=== PATIENT | male | born 1980 | race Caucasian/White ===

== ENCOUNTER 2018-06-11 13:56 | Emergency (ER) | payer MEDICAID ==
[~2018-06-11] VITALS: Ht 188 cm; Wt 100.7 kg
[2018-06-11 14:06] VITALS: BP 138/111; Ht 188 cm; Wt 100.7 kg
== END 2018-06-11 15:31 | disposition home or self-care (01) ==
LOC: ED 13:56
DX: M54.5 Low back pain (principal); E11.9 Type 2 diabetes mellitus without complications; I10 Essential (primary) hypertension; E78.00 Pure hypercholesterolemia, unspecified

== ENCOUNTER 2019-02-28 09:44 | Emergency (ER) | payer MEDICAID ==
[~2019-02-28] VITALS: Ht 185.4 cm; Wt 99.8 kg
[2019-02-28 09:49] VITALS: Ht 185.4 cm; Wt 99.8 kg
[2019-02-28 12:16] VITALS: BP 138/90
== END 2019-02-28 12:20 | disposition home or self-care (01) ==
LOC: ED 09:44
DX: S40.012A Contusion of left shoulder, initial encounter (principal); S70.02XA Contusion of left hip, initial encounter; S80.12XA Contusion of left lower leg, initial encounter; S90.02XA Contusion of left ankle, initial encounter; S50.312A Abrasion of left elbow, initial encounter; I10 Essential (primary) hypertension; E11.9 Type 2 diabetes mellitus without complications; Z76.0 Encounter for issue of repeat prescription; Y08.09XA Assault by strike by other specified type of sport equipment, initial encounter; Y93.89 Activity, other specified; Y92.89 Other specified places as the place of occurrence of the external cause; Y99.8 Other external cause status

== ENCOUNTER 2019-03-06 14:37 | Emergency (ER) | payer MEDICAID ==
[~2019-03-06] VITALS: Ht 185.4 cm; Wt 99.8 kg
[2019-03-06 14:47] VITALS: Ht 185.4 cm; Wt 99.8 kg
[2019-03-06 15:28] LABS: BASOPHIL % 0.3 % (0-2); PLATELET COUNT 365 x10^3mcL (130-400); RED CELL DISTRIBUTION WIDTH 12.8 % (11.5-14.5)
[2019-03-06 15:36] LABS: ALBUMIN 3.7 g/dL (3.4-5.0); ALKALINE PHOSPHATASE 101 U/L (46-116); ALT/SGPT 36 U/L (16-63); AST/SGOT 12 U/L (15-37); BILIRUBIN TOTAL 0.6 mg/dL (0.20-1.00); CALCIUM 10.5 mg/dL (8.5-10.1); CHLORIDE SERUM 97 mmol/L (98-107); CREATININE SERUM 0.9 mg/dL (0.7-1.3); GFR1 > 60 mL/min; POTASSIUM SERUM 4.4 mmol/L (3.5-5.1); SODIUM SERUM 135 mmol/L (136-145)
[2019-03-06 15:52] LABS: GLUCOSE SERUM 487 mg/dL (74-106)
[2019-03-06 18:18] VITALS: BP 104/91
== END 2019-03-06 18:18 | disposition other institution (70) ==
LOC: ED 14:37
PROVIDERS: Specialist
DX: E11.65 Type 2 diabetes mellitus with hyperglycemia (principal); F17.200 Nicotine dependence, unspecified, uncomplicated; I10 Essential (primary) hypertension; F19.10 Other psychoactive substance abuse, uncomplicated; Z98.890 Other specified postprocedural states
CPT/HCPCS: 82962; 99406; J1815; J7030; Q0092

== ENCOUNTER 2019-03-06 14:37 | Emergency (ER) | payer OTHER | END 2019-03-06 18:18 | disposition other institution (70) | LOC: ED 14:37 | DX: Z02.89 Encounter for other administrative examinations (principal) | CPT/HCPCS: 36600 ==

== ENCOUNTER 2019-03-21 09:34 | Emergency (ER) | payer MEDICAID ==
[~2019-03-21] VITALS: Ht 185.4 cm; Wt 99.8 kg
[2019-03-21 09:37] VITALS: Ht 185.4 cm; Wt 99.8 kg
[2019-03-21 11:34] VITALS: BP 140/93
== END 2019-03-21 11:42 | disposition other institution (70) ==
LOC: ED 09:34
DX: F15.10 Other stimulant abuse, uncomplicated (principal); E11.9 Type 2 diabetes mellitus without complications; I10 Essential (primary) hypertension; Z13.89 Encounter for screening for other disorder; Z98.890 Other specified postprocedural states; Z59.0 Homelessness
CPT/HCPCS: 82962

== ENCOUNTER 2019-03-21 09:34 | Emergency (ER) | payer OTHER | END 2019-03-21 11:42 | disposition other institution (70) | LOC: ED 09:34 | DX: Z02.89 Encounter for other administrative examinations (principal) ==

== ENCOUNTER 2019-06-14 17:28 | Emergency (ER) | payer MEDICAID ==
[~2019-06-14] VITALS: Ht 185.4 cm; Wt 93.9 kg
[2019-06-14 17:37] VITALS: BP 135/91; Ht 185.4 cm; Wt 93.9 kg
== END 2019-06-14 19:03 | disposition home or self-care (01) ==
LOC: ED 17:28
DX: E11.65 Type 2 diabetes mellitus with hyperglycemia (principal); I10 Essential (primary) hypertension; F17.210 Nicotine dependence, cigarettes, uncomplicated; Z76.0 Encounter for issue of repeat prescription
CPT/HCPCS: 82962; 99406